=== PATIENT | male | born 1950 | race Caucasian/White ===

== ENCOUNTER 2018-07-10 17:11 | Inpatient (IN) | payer OTHER ==
[~2018-07-10] VITALS: Ht 170.2 cm; Wt 85.3 kg
[2018-07-10 17:20] VITALS: Ht 170.2 cm; Wt 85.3 kg
[2018-07-10 18:08] LABS: UA SPECIFIC GRAVITY 1.025 (1.005-1.035); microscopic required? YES; urine erythrocyte 3+ (NEGATIVE)
[2018-07-10 18:57] LABS: PLATELET COUNT 267 x10^3mcL (130-400)
[2018-07-10 18:58] LABS: CALCIUM 9.2 mg/dL (8.5-10.1); CARBON DIOXIDE 25.6 mmol/L (21-32); CREATININE SERUM 3.3 mg/dL (0.7-1.3); POTASSIUM SERUM 3.5 mmol/L (3.5-5.1)
[2018-07-10 19:03] LABS: ALBUMIN 3.5 g/dL (3.4-5.0); BILIRUBIN TOTAL 0.5 mg/dL (0.20-1.00); RED CELL DISTRIBUTION WIDTH 15.5 % (11.5-14.5)
[2018-07-10 19:04] LABS: TOTAL PROTEIN, SERUM 8.7 g/dL (6.4-8.2)
[2018-07-10 19:27] LABS: BAND NEUTROPHIL 5 % (0-10); METAMYELOCTE 3 % (0-2); MONOCYTE 9 % (0-7); SEGMENTED NEUTROPHILS 76 % (37-75)
[2018-07-10 19:31] LABS: rbc morphology (normal/abnorm) NORMAL (NORMAL)
[2018-07-10 19:32] LABS: PLATELET MORPHOLOGY FEW LARGE PLATELETS
[2018-07-10] MEDS ORDERED: COREG12.5 MG PO (23:56)
[2018-07-11] VITALS (7 sets, daily range): BP systolic 152–167; BP diastolic 78–102
[2018-07-11 07:24] LABS: CALCIUM 8.6 mg/dL (8.5-10.1); CARBON DIOXIDE 25.8 mmol/L (21-32); CREATININE SERUM 2.9 mg/dL (0.7-1.3); POTASSIUM SERUM 3.6 mmol/L (3.5-5.1)
[2018-07-11 07:53] LABS: PLATELET COUNT 263 x10^3mcL (130-400)
[2018-07-11 08:27] LABS: RED CELL DISTRIBUTION WIDTH 15.4 % (11.5-14.5)
[2018-07-11 12:17] LABS: BAND NEUTROPHIL 0 % (0-10); BASOPHIL 0 % (0-2); MONOCYTE 7 % (0-7); SEGMENTED NEUTROPHILS 81 % (37-75)
[2018-07-11 12:19] LABS: PLATELET MORPHOLOGY PLATELETS NORMAL; rbc morphology (normal/abnorm) ABNORMAL (NORMAL)
[2018-07-12 06:07] VITALS: BP 149/77
[2018-07-12 07:03] LABS: CARBON DIOXIDE 25.2 mmol/L (21-32); CREATININE SERUM 2.8 mg/dL (0.7-1.3); POTASSIUM SERUM 3.8 mmol/L (3.5-5.1)
[2018-07-12 07:12] LABS: BASOPHIL % 0.3 % (0-2); PLATELET COUNT 294 x10^3mcL (130-400); RED CELL DISTRIBUTION WIDTH 15.4 % (11.5-14.5)
[2018-07-12 09:17] VITALS: BP 127/75
[2018-07-12 12:09] VITALS: BP 143/84
[2018-07-12 16:44] VITALS: BP 153/84
[2018-07-12 20:00] VITALS: BP 149/79
[2018-07-13 05:07] VITALS: BP 152/92
[2018-07-13 07:23] LABS: BASOPHIL % 0.3 % (0-2); PLATELET COUNT 310 x10^3mcL (130-400); RED CELL DISTRIBUTION WIDTH 15.3 % (11.5-14.5)
[2018-07-13 08:10] LABS: CALCIUM 8.7 mg/dL (8.5-10.1); CARBON DIOXIDE 24.8 mmol/L (21-32); CREATININE SERUM 2.6 mg/dL (0.7-1.3)
[2018-07-13 08:37] VITALS: BP 155/84
[2018-07-13] MEDS ORDERED: KEFLEX500 M1 PO (10:27)
[2018-07-13 10:41] VITALS: BP 155/84; BP 164/91
[2018-07-13 12:29] VITALS: BP 164/91
== END 2018-07-13 14:40 | disposition home or self-care (01) | DRG 872 ==
LOC: ED 17:11 → DU 23:33
PROVIDERS: Emergency Medicine; Internal Medicine Pulmonary Disease; ADMIT Internal Medicine Nephrology
DX: A41.9 Sepsis, unspecified organism (principal); N17.9 Acute kidney failure, unspecified; E87.1 Hypo-osmolality and hyponatremia; N12 Tubulo-interstitial nephritis, not specified as acute or chronic; K42.9 Umbilical hernia without obstruction or gangrene; B96.20 Unspecified Escherichia coli [E. coli] as the cause of diseases classified elsewhere; N18.9 Chronic kidney disease, unspecified; I12.9 Hypertensive chronic kidney disease with stage 1 through stage 4 chronic kidney disease, or unspecified chronic kidney disease; Z79.899 Other long term (current) drug therapy
CPT/HCPCS: J0360; J0696; J1644; J1956; J7030